=== PATIENT | female | born 1990 | race Caucasian/White ===

== ENCOUNTER 2016-10-26 15:00 | Emergency (ER) | payer OTHER, SELFPAY ==
[2016-10-26 15:11] VITALS: BP 119/45; PULSE 60; O2SAT 96
[2016-10-26 15:21] LABS: COMPLETE URINE MICROSCOPIC? YES; Collection Type CLEAN CATCH; Ph 8.5 (5-6)
--- NOTE | 2016-10-26 15:21 | ERPHSYRPT ---
- History of Present Illness Time Seen by Provider: 10/26/16 15:16 Source: patient Exam Limitations: no limitations Patient Subjective Stated Complaint: marjorie pain--intermittent in nature. pain this morning with urination. had miscarriage 2 months. no discharge at present. no fever. denies n/v/d. Triage Nursing Assessment: see triage Physician History: Pt. with sympt. of dysuria and frequency for past 2-3 days. Concerned about having UTI, which pt. have had in the past. Denies fever, chill, vomiting, dizziness, weakness. Pt. does c/o of lower crampy abdominal pain, but no back pain, vaginal bleeding or new discharge. Pt with recent miscarriage 2 months ago without any complications. Timing/Duration: day(s) (3), intermittent Activites at Onset: none Quality: cramping Onset Location: suprapubic Pain Radiation: none Severity of Pain-Max: mild Severity of Pain-Current: mild Prior abdominal problems: none Sexual intercourse history: single partner Modifying Factors: Improves With: urinating (worsens) Associated Symptoms: abdominal pain, urinary frequency, No fever, No chills, No diaphoresis, No nausea, No vomiting, No , No loss of bladder control, No lower back pain, No vaginal discharge Allergies/Adverse Reactions: No Known Drug Allergies Allergy (Unverified 10/26/16 15:12) Home Medications: No Home Meds 1 [facility] 10/26/16 [History] Hx Tetanus, Diphtheria Vaccination/Date Given: Yes Hx Influenza Vaccination/Date Given: No Hx Pneumococcal Vaccination/Date Given: No - Review of Systems Constitutional: No Fever, No Chills Eyes: No Symptoms Ears, Nose, & Throat: No Symptoms Respiratory: No Cough, No Dyspnea Cardiac: No Chest Pain, No Edema, No Syncope Abdominal/Gastrointestinal: Abdominal Pain, No Nausea, No Vomiting, No Diarrhea Genitourinary Symptoms: Dysuria, Urgency, No Hematuria, No Vaginal Bleeding, No Vaginal Discharge Musculoskeletal: No Back Pain, No Neck Pain Skin: No Rash Neurological: No Dizziness, No Focal Weakness, No Sensory Changes Psychological: No Symptoms Endocrine: No Symptoms All Other Systems: Reviewed and Negative - Past Medical History Pertinent Past Medical History: No Neurological History: No Pertinent History ENT History: No Pertinent History Cardiac History: No Pertinent History Respiratory History: No Pertinent History Musculoskeletal History: No Pertinent History GI Medical History: GERD History: Other (UTI's) Psycho-Social History: No Pertinent History Female Reproductive Disorders: No Pertinent History Other Medical History: FREQUENT UTI'S - Past Surgical History Past Surgical History: Yes Neuro Surgical History: No Pertinent History Cardiac: No Pertinent History Respiratory: No Pertinent History Gastrointestinal: No Pertinent History Genitourinary: No Pertinent History Musculoskeletal: No Pertinent History Female Surgical History: Section - Social History Smoking Status: Current every day smoker How long have you smoked: 12 Exposure to second hand smoke: Yes Drug Use: none Patient Lives Alone: No - Female History Hx Last Menstrual Period: unsure Hx Now: Yes - Nursing Vital Signs Nursing Vital Signs: Initial Vital Signs Temperature 97.8 F Temperature Source Oral Pulse Rate 60 Respiratory Rate 18 Blood Pressure [Right Arm] 119/45 Pain Intensity 6 - Physical Exam General Appearance: no apparent distress, alert Eye Exam: PERRL/EOMI, eyes nml inspection Ears, Nose, Throat Exam: normal ENT inspection, TMs normal, pharynx normal, moist mucous membranes Neck Exam: normal inspection, non-tender, supple, full range of motion Respiratory Exam: normal breath sounds, lungs clear, No respiratory distress Cardiovascular Exam: regular rate/rhythm, normal heart sounds, normal peripheral pulses Gastrointestinal/Abdomen Exam: soft, No tenderness, No mass Pelvic Exam: not done Back Exam: normal inspection, normal range of motion, No CVA tenderness, No vertebral tenderness Extremity Exam: normal inspection, normal range of motion, pelvis stable Neurologic Exam: alert, oriented x 3, cooperative, ic design manager II-XII nml as tested, normal mood/affect, sensation nml, No motor deficits Skin Exam: normal color, warm, dry Lymphatic Exam: No adenopathy SpO2 Interpretation: normal SpO2: 96 Oxygen Delivery: Room Air - Course Nursing assessment & vital signs reviewed: Yes Ordered Tests: Active Orders 24 hr Category Date Time Status HCG,QUALITATIVE URINE Stat Lab 10/26/16 15:14 Completed UA W/ MICROSCOPIC Stat Lab 10/26/16 15:09 Completed Lab/Rad Data: Laboratory Results 10/26/16 10/26/16 Range/Units 15:14 15:09 Ur Collection Type CLEAN CATCH Urine Color YELLOW (YELLOW) Urine Appearance CLEAR (CLEAR) Urine pH 8.5 (5-6) Ur Specific [place] 1.020 (1.005-1.025) Urine Protein TRACE (Negative) Urine Glucose (UA) NEGATIVE (NEGATIVE) mg/dL Urine Ketones NEGATIVE (NEGATIVE) Urine Nitrite NEGATIVE (NEGATIVE) Urine Bilirubin NEGATIVE (NEGATIVE) Urine Urobilinogen 1 (0-1) mg/dL Urine WBC (Auto) NEGATIVE (NEGATIVE) Urine RBC (Auto) NEGATIVE (0-5) Ismael/ul Urine Microscopic RBC 0-2 (0-2) /HPF Urine Microscopic WBC 0-2 (0-5) /HPF Ur Epithelial Cells FEW (FEW) /HPF Urine Bacteria FEW (NEGATIVE) /HPF Urine Mucus SLIGHT (NEGATIVE) /HPF Urine HCG, Qual NEGATIVE (Negative) Specimen Received [id number] - Progress Progress: improved Progress Note: 10/26/16 15:37 Pt. sitting comfortably in no acute distress. Counseled pt/family regarding: lab results, diagnosis - Departure Time of Disposition: 15:38 Departure Disposition: Home Clinical Impression: Dysuria Condition: Stable Critical Care Time: No Instructions: Dysuria -- Adult Additional Instructions: Drink plenty of fluids. Return for worse pain, fever, urinary symptoms or any problems
[2016-10-26 15:29] LABS: Bacteria FEW /HPF (NEGATIVE); Epithelial Cells FEW /HPF (FEW); Mucus SLIGHT /HPF (NEGATIVE); WBC 0-2 /HPF (0-5)
== END 2016-10-26 15:47 | disposition home or self-care (01) ==
LOC: ED 15:00
DX: R30.0 Dysuria (principal)
CPT/HCPCS: 81000; 84703; 99283